=== PATIENT | female | born 1935 | race Caucasian/White ===

== ENCOUNTER 2024-06-03 13:28 | Emergency (ER) | payer MEDICARE, SELFPAY ==
[2024-06-03 13:39] VITALS: BP 141/72; PULSE 76; RESP 20; TEMP 36.6; O2SAT 96
--- NOTE | 2024-06-03 14:37 | ED.GENADULT ---
HPI - General Adult General Chief complaint: Urogenital-Female Stated complaint: Poss UTI Time Seen by Provider: 06/03/24 14:37 Source: patient, RN notes reviewed and old records reviewed Mode of arrival: ambulatory Limitations: no limitations History of Present Illness HPI narrative: 89-year-old female to [facility] from assisted living facility. Patient's niece brought her in stating that staff at patient's facility are reporting increased irritation and confusion. Patient history of dementia. Staff concerned that patient may have a urinary tract infection. Patient denies urinary complaints, bowel complaints, abdominal pain, fever, nausea, vomiting. Patient's niece endorses that patient is a poor historian and may not be able to appropriately discuss actual symptoms. Patient's knees had to assist patient in restroom to give urine sample. Patient confused on exam but is showing no signs of irritation. Respirations even and nonlabored. Patient in no acute distress. Related Data Home Medications Medication Instructions Recorded Confirmed buspirone 7.5 mg tablet mg 06/03/24 divalproex 125 mg tablet,delayed mg PO 06/03/24 release Allergies Allergy/AdvReac Type Severity Reaction Status Date / Time No Known Allergies Allergy Verified 06/03/24 14:45 Review of Systems Review of Systems: All systems reviewed & are unremarkable except as noted in HPI and below Constitutional: Constitutional: Reports no additional constitutional complaints Eyes: Eyes: Reports no additional eye complaints ENT: Reports system reviewed and no additional complaints, except as documented Cardiovascular: Cardiovascular: Reports no additional cardiovascular complaints, Denies chest pain and Denies dyspnea Respiratory: Respiratory: Reports no additional respiratory complaints, Denies cough and Denies dyspnea Musculoskeletal: Musculoskeletal: Reports no additional musculoskeletal complaints Neurologic: Reports as per HPI and Reports confusion ( Baseline) Psychiatric: Psychiatric: Reports no additional psychiatric complaints PMFSH Comments At the time of my signature, I reviewed and agree with the nursing past medical, surgical, social, and family history. There is no relevant family history pertinent to the patient complaint. Exam Const: General: cooperative, healthy appearing, comfortable, no acute distress, alert and well nourished Nutritional Appearance: well nourished Orientation/consciousness: patient oriented x3 Limitations: no limitations HENMT: Head: normal to inspection Ears: external ears normal Face/Nose/Sinus: Normal external nose present, Normal nares present, normal facial exam, No erythema and No edema Face and sinus: normal facial exam, no erythema and no edema Mouth: Yes Normal oral and palatal mucosa present Eyes: General: appearance normal, both eyes and all related structures Neck: Neck: normal visual inspection, full ROM and no meningeal signs Lymphatic: no lymphadenopathy noted and no lymphedema noted Chest: Chest palpation & inspection: normal inspection of the chest Resp: Effort & Inspection: normal respiratory effort and able to speak in complete sentences Auscultation: clear to auscultation bilaterally Cardio: Jugular venous distension: no JVD Rate: regular rate Rhythm: regular rhythm Back/Spine/Pelvis: Cervical Spine: cervical ROM normal Skin: General skin exam: normal color, no rashes or lesions noted and turgor normal Neuro: General: patient oriented x3, gait normal, moves all extremities and no meningeal signs Speech: normal speech Gait exam (Neuro): Normal gait present Extrem: General: normal to inspection, full ROM and capillary refill normal Psych: Appearance: grossly normal and well kempt Course Course Emergency Course: Some parts of this dictation were generated by voice recognition software and may contain typographical and/or grammatical inaccuracies. Level of C
[2024-06-03 14:47] LABS: EDUAAPPEAR Clear; EDUABILI Negative; EDUABLOOD Negative; EDUACOLOR1 Yellow; EDUAGLUCOSE Negative; EDUAKETONE Negative; EDUALEUKO Trace; EDUANITRATE Negative; EDUAPH 5.5; EDUAPROTEIN Negative; EDUAUROBILI 0.2
== END 2024-06-03 14:55 ==
PROVIDERS: Emergency Provider Nurse Practitioner Family
DX: N39.0 Urinary tract infection, site not specified (principal); F03.90 Unspecified dementia, unspecified severity, without behavioral disturbance, psychotic disturbance, mood disturbance, and anxiety
CPT/HCPCS: 81003; 87086; 87088; 99213; G0463

== ENCOUNTER 2024-06-13 14:27 | Emergency (ER) | payer MEDICARE, SELFPAY ==
[2024-06-13 14:40] VITALS: BP 140/63; PULSE 71; RESP 16; TEMP 36.6; O2SAT 97
--- NOTE | 2024-06-13 14:48 | ED.EAR ---
HPI - Ear Problem General Chief complaint: Ear Stated complaint: Ear Problem Time Seen by Provider: 06/13/24 14:48 Source: patient, RN notes reviewed and old records reviewed Mode of arrival: ambulatory Limitations: no limitations History of Present Illness HPI Narrative: 89-year-old female brought to [facility] by her nephew from assisted living for complaint of decreased hearing for the past several weeks, especially on left side. Patient history of dementia, poor historian. Patient's nephew reports that patient has had to have wax removed from bilateral ears in past and is concerned that she has wax build up again. Nephew also states that patient is supposed to be wearing bilateral hearing aids but that she threw them away and has not worn them for over a year. Patient denies ear pain, sore throat, fever, allergies, shortness of breath. Respirations even and nonlabored. Patient in no acute distress. Related Data Home Medications Medication Instructions Recorded Confirmed buspirone 7.5 mg tablet mg 06/03/24 divalproex 125 mg tablet,delayed mg PO 06/03/24 release Allergies Allergy/AdvReac Type Severity Reaction Status Date / Time No Known Allergies Allergy Verified 06/03/24 14:45 Review of Systems Review of Systems: All systems reviewed & are unremarkable except as noted in HPI and below Constitutional: Constitutional: Reports no additional constitutional complaints Eyes: Eyes: Reports no additional eye complaints ENT: Reports system reviewed and no additional complaints, except as documented Cardiovascular: Cardiovascular: Reports no additional cardiovascular complaints, Denies chest pain and Denies dyspnea Respiratory: Respiratory: Reports no additional respiratory complaints, Denies cough and Denies dyspnea Musculoskeletal: Musculoskeletal: Reports no additional musculoskeletal complaints Neurologic: Reports system reviewed and no additional complaints, except as documented Psychiatric: Psychiatric: Reports no additional psychiatric complaints PMFSH Comments At the time of my signature, I reviewed and agree with the nursing past medical, surgical, social, and family history. There is no relevant family history pertinent to the patient complaint. Exam Const: General: cooperative, healthy appearing, comfortable, no acute distress, alert and well nourished Nutritional Appearance: well nourished Orientation/consciousness: patient oriented x3 Limitations: no limitations HENMT: Head: normal to inspection Ears: external ears normal Face/Nose/Sinus: Normal external nose present, Normal nares present, normal facial exam, No erythema and No edema Face and sinus: normal facial exam, no erythema and no edema Mouth: Yes Normal oral and palatal mucosa present Eyes: General: appearance normal, both eyes and all related structures Neck: Neck: normal visual inspection, full ROM and no meningeal signs Lymphatic: no lymphadenopathy noted and no lymphedema noted Chest: Chest palpation & inspection: normal inspection of the chest Resp: Effort & Inspection: normal respiratory effort and able to speak in complete sentences Auscultation: clear to auscultation bilaterally Cardio: Jugular venous distension: no JVD Rate: regular rate Rhythm: regular rhythm Back/Spine/Pelvis: Cervical Spine: cervical ROM normal Skin: General skin exam: normal color, no rashes or lesions noted and turgor normal Neuro: General: patient oriented x3, gait normal, moves all extremities and no meningeal signs Speech: normal speech Gait exam (Neuro): Normal gait present Extrem: General: normal to inspection, full ROM and capillary refill normal Psych: Appearance: grossly normal and well kempt Course Course Emergency Course: Some parts of this dictation were generated by voice recognition software and may contain typographical and/or grammatical inaccuracies. Level of Care: Express Care Visit Vital Signs Vital signs:
== END 2024-06-13 15:44 | disposition home or self-care (01) ==
PROVIDERS: Emergency Provider Nurse Practitioner Family; PCP Family Medicine
DX: H60.92 Unspecified otitis externa, left ear (principal); H61.23 Impacted cerumen, bilateral; F03.90 Unspecified dementia, unspecified severity, without behavioral disturbance, psychotic disturbance, mood disturbance, and anxiety
CPT/HCPCS: 69210; 99213; G0463

== ENCOUNTER 2024-06-28 17:07 | Emergency (ER) | payer MEDICARE, SELFPAY ==
[2024-06-28 17:19] VITALS: BP 151/79; PULSE 74; RESP 20; TEMP 36.4; O2SAT 97
[2024-06-28 17:21] VITALS: BP 151/79; PULSE 74; RESP 20; TEMP 36.4; O2SAT 97
--- NOTE | 2024-06-28 17:43 | ED.GENADULT ---
HPI - General Adult General Chief complaint: Urogenital-Female Stated complaint: bleeding from vagina Source: patient and family Mode of arrival: ambulatory Limitations: no limitations History of Present Illness HPI narrative: Patient presents for evaluation of potential vaginal bleeding. Patient has dementia and lives at [facility]. Patient is here with her nephew's who provides me with most of the history. This evening the patient informed her nephew's that she recently had her period. Neither the patient or family member can not tell me whether the patient has noted blood in the toilet with urination or has any urinary symptoms. Patient denies any abdominal pain, fever chills. Patient indicates she has noted some blood in her underwear but cannot tell me the duration of time in which she has been symptomatic. Related Data Home Medications Medication Instructions Recorded Confirmed buspirone 7.5 mg tablet mg 06/03/24 divalproex 125 mg tablet,delayed mg PO 06/03/24 release Allergies Allergy/AdvReac Type Severity Reaction Status Date / Time No Known Allergies Allergy Verified 06/03/24 14:45 Review of Systems Review of Systems: CONSTITUTIONAL: Denies fever, chills, or sweats. EYES: Denies visual changes, redness, or discharge. ENT: Denies rhinorrhea, congestion, sore throat, or otalgia. CARDIOVASCULAR: Denies chest pain, palpitations, or edema. RESPIRATORY: Denies cough or dyspnea. GASTROINTESTINAL: Denies abdominal pain, nausea, vomiting, or diarrhea. GENITOURINARY: Reports potential vaginal bleeding. Denies dysuria or hematuria. SKIN: Denies rash or itching. MUSCULOSKELETAL: Denies back pain, joint pain, or myalgia. NEUROLOGIC: Denies headache, numbness, dizziness, or weakness. PSYCHIATRIC: Denies anxiety or depression. [facility] Past Medical History Medical History (Updated 06/28/24 @ 18:06 by OLIVIA Candelario, STEPHANIE) Anxiety Dementia Surgical History Surgical History Surgical history unknown Family History Family History Mother Family history unknown Social History Social History (Updated 06/28/24 @ 17:46 by OLIVIA Candelario, ) Living arrangements: assisted living Gender identity (if verbalized by the patient): Female Exam Narrative: GENERAL: Well-appearing, well-nourished, and in no acute distress. HEAD: Normocephalic, atraumatic. EYES: PERRLA and EOMI. ENT: Nares clear, no rhinorrhea or epistaxis. Mucous membranes moist. Oropharynx without tonsillar hypertrophy exudate or other lesions. Bilateral TMs pearly stark nonbulging NECK: Supple. No adenopathy or masses. No carotid bruits or JVD CHEST: Clear to auscultation. No respiratory distress. No wheezes rales or rhonchi HEART: Regular rate and rhythm. No murmur heard. Normal peripheral pulses. ABDOMEN: Soft, nontender, nondistended, normal active bowel sounds. EXTREMITIES: Normal range of motion. No edema. GENITAL: Unable to perform speculum exam due to patient being uncooperative SKIN: Warm, dry, no rash. NEURO: No focal deficits. Oriented to person only PSYCH: Normal mood and affect. Course Course Emergency Course: This is an 89-year-old female who presented for potential vaginal bleeding. I explained to patient and family the need for a speculum exam to determine whether bleeding was coming from the vagina verses urethra. I attempted to perform a speculum exam but patient was extremely uncooperative. She began urinating on the exam table and became physically aggressive with staff. We had to terminate the rest of the exam due to concern that patient may follow up the exam table. Her dementia was definitely of barrier to her being able to receive a speculum exam today. I think she would be best served in an environment where she has side rails to prevent fall
--- NOTE | 2024-06-28 17:57 | PC.NURSE ---
Unable to do vaginal exam. Patient fighting staff and trying to roll off table. Unable to get in stirrups. Voiding all over the table. Would not let provider do exam. She is very hard of hearing.
[2024-06-28 18:07] LABS: EDUAAPPEAR Cloudy; EDUABILI Negative; EDUABLOOD 1+; EDUACOLOR1 Light/Pale; EDUAGLUCOSE Negative; EDUAKETONE Negative; EDUALEUKO 1+; EDUANITRATE Negative; EDUAPROTEIN Negative; EDUASPGRAVITY 1.025; EDUAUROBILI 0.2
== END 2024-06-28 18:05 | disposition short-term general hospital (02) ==
PROVIDERS: Emergency Provider Nurse Practitioner; PCP Family Medicine
DX: N93.9 Abnormal uterine and vaginal bleeding, unspecified (principal); F03.90 Unspecified dementia, unspecified severity, without behavioral disturbance, psychotic disturbance, mood disturbance, and anxiety
CPT/HCPCS: 81003; 99212; G0463

== ENCOUNTER 2024-06-28 18:31 | Emergency (ER) | payer MEDICARE, SELFPAY ==
[2024-06-28 18:47] VITALS: BP 156/66; PULSE 70; RESP 14; TEMP 36.4; O2SAT 97
--- NOTE | 2024-06-28 20:40 | PC.NURSE ---
Pt's family member ambulated to the hotel front desk agent and stated she was going to take pt home and follow up with her doctor in the morning.
== END 2024-06-28 21:00 | disposition left against medical advice (07) ==
PROVIDERS: PCP Family Medicine
DX: N93.9 Abnormal uterine and vaginal bleeding, unspecified (principal)
CPT/HCPCS: 99199

== ENCOUNTER 2024-06-29 10:16 | Emergency (ER) | payer MEDICARE, SELFPAY ==
[2024-06-29] VITALS (13 sets, daily range): BP systolic 132–168; BP diastolic 61–96; PULSE 68–82; RESP 13–23; TEMP 36.5; O2SAT 96–99
--- NOTE | 2024-06-29 11:37 | ED.GIBLEED ---
HPI - GI Bleed General Chief complaint: GI Bleed Stated complaint: RECTAL BLEEDING Time Seen by Provider: 06/29/24 11:29 Source: family and EMS Mode of arrival: EMS Limitations: dementia History of Present Illness HPI Narrative: 89 years old your white female came from assisted living with her nephew who is telling me that the notice possible blood in her depends and stool last night what red dark blood. Patient has dementia unable to tell. Currently patient main complaint is of being here in the hospital patient is not on anticoagulant or anti-platelet medication, patient is not on any home medications Related Data Home Medications Medication Instructions Recorded Confirmed buspirone 7.5 mg tablet mg 06/03/24 divalproex 125 mg tablet,delayed mg PO 06/03/24 release Allergies Allergy/AdvReac Type Severity Reaction Status Date / Time No Known Allergies Allergy Verified 06/29/24 11:32 Review of Systems Review of Systems: All systems reviewed & are unremarkable except as noted in HPI and below PMFSH Past Medical History Medical History Anxiety Dementia Surgical History Surgical History Surgical history unknown Family History Family History Mother Family history unknown Social History Social History Living arrangements: assisted living Gender identity (if verbalized by the patient): Female Exam Narrative: General appearance: Well-developed, well-nourished Skin: Normal color Head: Normocephalic, nontraumatic Eyes: Clear conjunctiva ENT: Oropharynx normal, ears normal, nose normal Neck: Supple, nontender Chest and respiratory: Airway patent, no respiratory distress, no accessory muscle use Heart: Regular rate/rhythm Abdomen: Soft, nontender, no organomegaly, quiet bowel sounds rectal exam showed no mass, no hemorrhoids, no tenderness, guaiac negative Vascular: Normal peripheral pulses, normal capillary refill. Musculoskeletal: Normal range of motion, nontender back Neurologic: Alert and oriented to her name only Pelvic exam showed normal vagina, normal vaginal pouch, no blood or any lesion. Course Consultations Consultation #1: Dr. Plata Outpatient follow-up Date: 06/29/24 Time: 14:01 Vital Signs Vital signs: Vital Signs Temperature 36.5 C 06/29/24 10:17 Pulse Rate 71 06/29/24 10:17 Respiratory Rate 20 06/29/24 10:17 Blood Pressure 161/91 H 06/29/24 10:17 Pulse Oximetry 98 06/29/24 10:17 Oxygen Delivery Room Air 06/29/24 10:17 Temperature 36.5 C 06/29/24 10:17 Pulse Rate 74 06/29/24 13:02 Respiratory Rate 19 06/29/24 13:02 Blood Pressure 132/61 06/29/24 13:02 Pulse Oximetry 97 06/29/24 13:02 Oxygen Delivery Room Air 06/29/24 11:19 MDM - GI Bleed MDM Narrative Medical decision making narrative: Patient came to the ED for possible blood in the stool and depend. Vital signs on arrival showed blood pressure of 161/91 Physical examination showed no significant abnormalities except dementia, rectal exam and pelvic exam showed no bleeding. Differential diagnosis include GI bleed, vaginal bleed, urinary tract infection or hematuria, anemia. Blood workup today showed insignificant abnormalities. Rectal exam, pelvic exam and urinalysis showed no blood, patient hemoglobin is 12.7, Patient is hemodynamically stable, asymptomatic. The plan to discharge patient to residential and follow-up with Dr. Plata as outpatient. Discussed with Dr. Vera
[2024-06-29] MEDS: SODIUM CHLORIDE 0.9% IV 1,000 ML 100 ML IV CONT (12:02)
[2024-06-29] MEDS: PANTOPRAZOLE SODIUM IV 40 MG VIAL IV PUSH (12:03)
[2024-06-29 12:19] LABS: Basophils Absolute Auto 0.1 K/mm3 (0.0-0.1); Basophils Percent Auto 0.7 % (0.2-1.2); Eosinophils Absolute Auto 0.3 K/mm3 (0-0.3); Eosinophils Percent Auto 3.3 % (0-4.4); Hematocrit 41.4 % (37.0-47.0); Hemoglobin 12.7 g/dL (12.0-15.0); Immature Granulocyte Absolute 0.02 K/mm3 (0.00-0.031); Immature Granulocyte Percent A 0.3 % (0-0.5); Lymphocytes Absolute Auto 1.46 K/mm3 (0.9-3.2); Lymphocytes Percent Auto 19.2 % (18.3-44.2); Mean Corpuscular HGB Conc 30.7 g/dl (32-36); Mean Corpuscular Hemoglobin 27.8 pg (26-34); Mean Corpuscular Volume 90.6 fl (80-100); Mean Platelet Volume 10.6 fl (7.4-10.4); Monocytes Absolute Auto 0.8 K/mm3 (0.1-0.6); Monocytes Percent Auto 10.4 % (2.6-8.5); Neutrophils Absolute Auto 5.1 K/mm3 (1.3-6.7); Neutrophils Percent Auto 66.1 % (45.5-73.1); Platelet Count Result 257 k/mm3 (150-375); Red Blood Count 4.57 M/mm3 (4.2-5.4); Red Cell Distribution Width 14.5 % (11.5-14.5); White Blood Count 7.6 K/mm3 (4.5-10.0)
[2024-06-29 12:30] LABS: INR 0.9; Prothrombin Time 13.1 Seconds (11.1-14.7)
[2024-06-29 12:31] LABS: Partial Thromboplastin Time 26.7 Seconds (22.3-36.8)
[2024-06-29 12:37] LABS: Lactic Acid Reflex 0.6 mmol/L (0.7-2.0)
[2024-06-29 12:39] LABS: Alanine Aminotransferase 15 U/L (6-35); Albumin Level 4.2 g/dL (3.5-5.1); Alkaline Phosphatase 59 U/L (38-126); Anion Gap 8 mmol/L (4-12); Aspartate Amino Transferase 25 U/L (14-36); Bilirubin,Total 0.4 mg/dL (0.2-1.3); Blood Urea Nitrogen 16 mg/dL (7-17); Carbon Dioxide 30 mmol/L (22-30); Chloride 102 mmol/L (98-107); Estimated CRCL calculation 35 ml/min; Estimated Glomerular Filt Rate 59; Glucose 93 mg/dL (65-110); Lipase 90 U/L (23-300); Magnesium 2.2 mg/dL (1.6-2.3); Potassium 4.1 mmol/L (3.4-5.0); Sodium 140 mmol/L (137-145)
[2024-06-29] MEDS: LORazepam INJ (*CRX) 2 MG/ML VIAL 1 MG IV PUSH (12:48)
== END 2024-06-29 14:46 ==
PROVIDERS: Emergency Provider Emergency Medicine; PCP Family Medicine
DX: K62.5 Hemorrhage of anus and rectum (principal); F41.9 Anxiety disorder, unspecified; F03.90 Unspecified dementia, unspecified severity, without behavioral disturbance, psychotic disturbance, mood disturbance, and anxiety
CPT/HCPCS: 36415; 80053; 83605; 83690; 83735; 85025; 85610; 85730; 86850; 86900; 86901; 96361; 96374; 96375; 99284; J2060; J2470; J7030

== ENCOUNTER 2024-12-16 14:01 | Emergency (ER) | payer MEDICARE, SELFPAY ==
--- NOTE | ~2024-12-16 | XR_ITS ---
EXAMINATION: XR chest 1V DATE: 12/16/2024 16:25 INDICATION: Fluid overload. Dementia. TECHNIQUE: A single frontal view of the chest was obtained. COMPARISON: None. FINDINGS: There are airspace opacities at left lung base. No pleural effusion or pneumothorax. The he art size is normal. IMPRESSION: 1. Airspace opacities at left lung base, consistent with atelectasis versus pneumonia. Reviewed, dictated and finalized at location A. ULAR TOWER CLIMBER IMPRESSION: 1. Airspace opacities at left lung base, consistent with atelectasis versus pne umonia.
--- OUTSIDE RECORDS SUMMARY | 2024-12-16 14:06 | XMS_ITS | Clinical Summary ---
Author Organization [facility] Address [address] [place] [address] Phone Care Team Providers Care Vice President Compliance Name Role Phone Amarjit Cerna MD Primary Care Provider [phone] Allergies No known active allergies Medications ketorolac (TORADOL) 10 MG Tablet Take 1 Tablet by mouth every 6 hours as needed for Moderate or more severe pain. 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, psychotic disturbance, mood disturbance, or anxiety 02/17/2022 Calculus of gallbladder with out cholecystitis without obstruction 05/17/2018 Mixed hyperlipidemia 11/16/2017 Hemorrhoids 03/15/2014 Diverticulosis of colon 03/15/2014 History of colonic polyps 02/19/2009 Hypertension, essential Arthritis Resolved Problems Problem Noted Date Diagnosed Date Resolved Date S/P total knee arthroplasty, 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/21/2019 12/27/2020 Osteoarthritis of left knee 09/21/2019 12/27/2020 Cholecystitis 03/02/2018 03/18/2018 Chest pain in adult 02/27/2018 03/18/20 18 Impacted cerumen 12/30/2012 12/18/2017 Immunizations Immunization Administration Dates Next Due Covid-19, Mrna, Lnp-s, Pf, 3 0 Mcg/0.3 Ml Dose ([place]) 04/10/2022,02/06/2021,01/09/2021 Influenza Vaccine 08/22/2019,08/13/2012 Influenza Vaccine greater than 3 yrs 08/2020,09/07/2019,08/16/2018,2013,08/04/2013 Influenza, High-dose, Quadrivalent 09/03/2022 Influenza, Injectable, Quadrivalent 08/19/2016 Influenza, Quadrivalent, Adjuvanted 09/14/2021 Influenza, Seasonal, Injecta ble, Undefined 08/14/2014,08/21/2013,08/04/2013,2011 Influenza, high-dose, trivalent, PF 09/07/2019,1 ,08/25/2017 Pneumococcal Vaccine - 13 Valent 12/18/2017,08/17 Pneumococcal Vaccine Adult - 23 Valent 12/23/2018 Family History Medical History Relation Name Comments Alcohol Abuse Father No Known Problems Mother Breast Cancer Neg Hx Relation Name Status Comments Father Mother Social History Tobacco Use Types Packs/Day Years Used Date Smoking Tobacco: Former Cigarettes 1 10 0 02/27/1975 - 02/27/1985 Smokeless Tobacco: Never Tobacco Cessation:Counseling Given: Not Answered Alcohol Use Standard Drinks/Week Comments Yes 1 (1 standard drink = 0.6 oz pur e alcohol) rare PHQ-2 Answer Date Recorded Total Score - Questions 1-9 0 05/2022 Sexually Active Control Partners Comments Never Comments No Sex and Gender Information Value Date Recorded Sex Assigned at Not on file 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[employer] Gender Identity Not on file Sexual Orientation Not on file Last Filed Vital Signs Vital Sign Reading Time Taken Comments Blood Pressure 143/94 08/27/2024 10:30 AM CDT Pulse 70 08/27/2024 10:30 AM CDT Temperature 36.8 ??C (98.3 ??F) 08/27/2024 9:12 AM CD T Respiratory Rate 16 08/27/2024 10:3 0 AM CDT Oxygen Saturation 96% 08/27/2024 10: 30 AM CDT Inhaled Oxygen Concentration - - Weight 81.6 kg (179 lb 14.3 oz) 08/27/2024 9:12 AM CDT Height 157.5 cm (5' 2 ) 08/27/2024 9:12 AM CDT Body Mass Index 32.9 08/27/2024 9:12 AM CDT Plan of Treatment Health Maintenance Due Date Last Done Comments DEXA Bone Density 1935 TdaP Immunization 1935 Zoster Immunization (1 of 2) 1986 Respiratory Syncytial Virus (RSV) Immunization (Adult) (1 - 1-dose 75+ series) 2011 Influenza Immunization (#1) 07/17/202408/16, 09/14/2021, 08/25/2020, Additional history exists SARS-COV-2 Immunization ( season) 2024 04/10/2022, 04/10/2022, 09/14/2021, Additional history exists Pneumococcal Immunization (50+ years) Completed 12/23/2018, 12/18/2017, 09/06/2015 Pneumococcal Immunization Combined Discontinued 12/23/2018, 12/18/2017, 09/06/2015 Hepatitis C Virus (HCV) Screening Completed 02/17/2022 Hepatitis B Immunization Aged Out No longer eligible based on patient's age to complete this topic Meningococcal Immunization (ACWY) Aged Out No longer eligible based on patient's age to complete this topic Rotavirus Immunization Aged Out No lo nger eligible based on patient's age to complete this topic Medical Devices Implanted Type Area Manager Of Construction Device Identifier Shelf Expiration Date Model / Serial / Lot Insert Tib 5 5mm Knee Crurtn Rotate Platform Attune - [id number] Implanted:Qty: 1 on 09/19/2019 by Laz Storey MD at [facility] IMPLANT Left: Knee [employer] 09/15/2023 [id number] Attune Tibial Base Size 5 Cementless Implanted:Qty: 1 on 09/19/2019 by Laz Storey MD at [facility] Left: Knee [employer] 05/15/2028 5 / [id number] Attune Femoral Porocoat Implanted:Qty: 1 on 09/19/2019 by Laz Storey MD at [facility] Left: Knee [employer] 04/15/2028 [id number] 5 / [id number] Procedures Procedure Name Priority Date/Time Associated Diagnosis Comments HEPATITIS C ANTIBODY Routine 02/17/2022 9:06 AM CDT Screening for viral disease from Last 3 Months or Most Recently Relevant to Health Maintenance Results * HEPATITIS C ANTIBODY (02/17/2022 9:06 AM CDT) hepatitis C antibody 0.11 <1 S/CO [facility] [id number] 02/17/2022 11:50 PM CDT [facility] Comment: Signal/Cutoff ratio ??< 0.79 is Nondetected Signal/Cutoff ratio 0.80-0.99 is Grayzone Signal/Cutoff ratio > 0.99 is Detected Supplemental assays are recommended if signal/cutoff ratio is >/=1.00. ??Signal/cutoff ratio result >/= 5.00 is 97% predictive of positivity for recombinant immunoblot assay (RIBA) and will be reported to the [place] Department of Public Health as required. 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 PRE-ARREST: Use entire range of life support measures to stabilize the patient. Care Teams Vice President Compliance Relationship Specialty Start Date End Date Amarjit Cerna MD [address] [place] [address] PCP - General Internal Medicine 11/14/17
[2024-12-16 14:40] VITALS: BP 148/60; PULSE 96; RESP 18; TEMP 36.6; O2SAT 96
--- NOTE | 2024-12-16 15:45 | ED_ITS ---
HPI - Extremity Problem General Chief complaint: Extremity Problem,Nontraumatic <Nadine Alonzo PA-C - Last Filed: 12/17/24 18:01> Stated complaint: congestion <Nadine Alonzo PA-C - Last Filed: 12/17/24 18:01> Time Seen by Provider: 12/16/24 15:45 <Nadine Alonzo PA-C - Last Filed: 12/17/24 18:01> Focused HPI: This is a 89 year old female that presents to the ER for possible heart failure. She has had worsening lower extremity edema. She also has a cough. No known history of heart failure. She was sent from her facility as they were unable to do these outpatient today. GENERAL: Elderly, well-nourished, and in no acute distress. HEAD: Normocephalic, atraumatic. CHEST: Clear to auscultation. ?No respiratory distress. HEART: Regular rate and rhythm.? NEURO: ?Alert and oriented x3. Patient screened in triage and initial orders placed.? ?Additional care and disposition to be based upon?diagnostic testing and treatment. <Nadine Alonzo PA-C - Last Filed: 12/17/24 18:01> History of Present Illness HPI Narrative: Agree with HPI. Worsening edema over last month. Decreased ambulation over last month. No history of heart failure. <Jaquan Simpson MD - Last Filed: 12/16/24 21:31> Related Data Home medications: Home Medications ?Medication ?Instructions ?Recorded ?Confirmed ?Last Taken ?Type buspirone 7.5 mg tablet mg 06/03/24 Unknown History divalproex 125 mg tablet,delayed mg PO 06/03/24 Unknown History release <Nadine Alonzo PA-C - Last Filed: 12/17/24 18:01> Allergies/Adverse reactions: Allergies Allergy/AdvReac Type Severity Reaction Status Date / Time No Known Allergies Allergy Verified 06/29/24 11:32 <Nadine Alonzo PA-C - Last Filed: 12/17/24 18:01> Review of Systems 2 Review of Systems: ROS unobtainable: Yes unobtainable due to mental status (Dementia) <Jaquan Simpson MD - Last Filed: 12/16/24 21:31> [facility]LY [facility] Past Medical History Medical History: Medical History Anxiety Dementia <Nadine Alonzo PA-C - Last Filed: 12/17/24 18:01> Surgical History Surgical History: Surgical History Surgical history unknown <Nadine Alonzo PA-C - Last Filed: 12/17/24 18:01> Family History Family History: Family History Mother Family history unknown <Nadine Alonzo PA-C - Last Filed: 12/17/24 18:01> Social History Social History: Social History Living arrangements: assisted living Gender identity (if verbalized by the patient): Female <Nadine Alonzo PA-C - Last Filed: 12/17/24 18:01> Exam 2 Narrative: GENERAL: Well-appearing, well-nourished, and in no acute distress. HEAD: Normocephalic, atraumatic. ENT: Mucous membranes moist. CHEST: Clear to auscultation. No respiratory distress. HEART: Regular rate and rhythm. Normal peripheral pulses. ABDOMEN: Soft, nontender, nondistended. EXTREMITIES: Normal range of motion. 4+ edema. SKIN: Warm, dry, no rash. NEURO: Alert and oriented x1. PSYCH: Normal mood and affect. <Jaquan Simpson MD - Last Filed: 12/16/24 21:31> Course Course Emergency Course: Edema felt to be from stasis. She does have mild UTI. Will be discharged with oral antibiotic. Family informed of treatment plan. <Jaquan Simpson MD - Last Filed: 12/16/24 21:31> Vital Signs Vital signs: Vital Signs Temperature 97.9 F 12/16/24 14:40 Pulse Rate 96 12/16/24 14:40 Respiratory Rate 18 12/16/24 14:40 Blood Pressure 148/60 H 12/16/24 14:40 Pulse Oximetry 96 12/16/24 14:40 Oxygen Delivery Room Air 12/16/24 14:40 Temperature 97.1 F L 12/16/24 21:47 Pulse Rate 75 12/16/24 21:47 Respiratory Rate 17 12/16/24 21:47 Blood Pressure 111/85 12/16/24 21:47 Pulse Oximetry 96 12/16/24 21:47 Oxygen Delivery Room Air 12/16/24 14:40 <Nadine Alonzo PA-C - Last Filed: 12/17/24 18:01> Vital Signs Temperature 97.9 F 12/16/24 14:40 Pulse Rate 96 12/16/24 14:40 Respiratory Rate 18 12/16/24 14:40 Blood Pressure 148/60 H 12/16/24 14:40 Pulse Oximetry 96 12/16/24 14:40 Oxygen Delivery Room Air 12/16/24 14:40 Temperature 97.1 F L 12/16/24 21:47 Pulse Rate 75 12/16/24 21:47 Respiratory Rate 17 12/16/24 21:47 Blood Pressure 111/85 12/16/24 21:47 Pulse Oximetry 96 12/16/24 21:47 Oxygen Delivery Room Air 12/16/24 14:40 <Jaquan Simpson MD - Last Filed: 12/16/24 21:31> MDM - Extremity (Nontraumatic) Lab Data Result diagrams: 12/16/24 18:21 12/16/24 18:21 <Nadine Alonzo PA-C - Last Filed: 12/17/24 18:01> Labs: Lab Results 12/16/24 12/16/24 12/16/24 Range/Units 18:12 18:21 18:52 WBC 9.6 (4.5-10.0) K/mm3 RBC 4.56 (4.2-5.4) M/mm3 Hgb 13.4 (12.0-15.0) g/dL Hct 42.7 (37.0-47.0) % MCV 93.6 (80-100) fl MCH 29.4 (26-34) pg MCHC 31.4 L (32-36) g/dl RDW 13.3 (11.5-14.5) % Plt Count 167 (150-375) k/mm3 MPV 9.8 (7.4-10.4) fl Immature Gran % (Auto) 0.4 (0-0.5) % Neut % (Auto) 65.6 (45.5-73.1) % Lymph % (Auto) 19.4 (18.3-44.2) % Gonzales % (Auto) 13.4 H (2.6-8.5) % Eos % (Auto) 0.8 (0-4.4) % Baso % (Auto) 0.4 (0.2-1.2) % Lymph # (Auto) 1.85 (0.9-3.2) K/mm3 Gonzales # (Auto) 1.3 H (0.1-0.6) K/mm3 Eos # (Auto) 0.1 (0-0.3) K/mm3 Baso # (Auto) 0.0 (0.0-0.1) K/mm3 Abs Immat Gran (auto) 0.04 H (0.00-0.031) K/mm3 Absolute Neuts (auto) 6.3 (1.3-6.7) K/mm3 Absolute Nucleated RBC 0.000 (0.0-0.012) K/mm3 Nucleated RBC % 0.0 (0.0-0.2) % Sodium 141 (137-145) mmol/L Potassium 3.9 (3.4-5.0) mmol/L Chloride 103 (98-107) mmol/L Carbon Dioxide 26 (22-30) mmol/L Anion Gap 12 (4-12) mmol/L BUN 15 (7-17) mg/dL Creatinine 0.60 L (0.7-1.0) mg/dL Estim Creat Clear Calc Not Reportable Estimated GFR > 60 (59 - ) Glucose 97 (65-110) mg/dL Calcium 8.9 (8.4-10.2) mg/dL Total Bilirubin 0.5 (0.2-1.3) mg/dL AST 24 (14-36) U/L ALT 14 (6-35) U/L Alkaline Phosphatase 66 (38-126) U/L NT-Pro-B Natriuret Pep 632 H (19.9-100) pg/mL Total Protein 7.0 (6.3-8.2) g/dL Albumin 3.9 (3.5-5.1) g/dL Urine Color Yellow (Yellow) Urine Appearance Cloudy H (Clear) Urine pH 6.0 (5.0-9.0) Ur Specific Jackson 1.010 (1.001-1.035) Urine Protein Negative (Negative) mg/dL Urine Glucose (UA) Negative (Negative) mg/dL Urine Ketones Negative (Negative) mg/dL Ur Blood (Man) Negative (Negative) Urine Nitrate Positive H (Negative) Urine Bilirubin Negative (Negative) Urine Urobilinogen 1.0 (<2.0) mg/dL Leukocyte Esterase Rfl 3+ H (Negative) MEGHANA/UL Urine RBC 0-2 (0-2) /hpf Urine WBC >100 H (0-3) /hpf Ur Squamous Epith Cells None seen (Few) /hpf Urine Bacteria 4+ H /hpf Urine Casts 0-2 Influenza A (RT-PCR) Negative (Negative) Influenza B (RT-PCR) Negative (Negative) RSV (RT-PCR) Negative (Negative) SARS-CoV-2 RNA (RT-PCR) Negative (Negative) <Nadine Alonzo PA-C - Last Filed: 12/17/24 18:01> Lab Results 12/16/24 12/16/24 12/16/24 Range/Units 18:12 18:21 18:52 WBC 9.6 (4.5-10.0) K/mm3 RBC 4.56 (4.2-5.4) M/mm3 Hgb 13.4 (12.0-15.0) g/dL Hct 42.7 (37.0-47.0) % MCV 93.6 (80-100) fl MCH 29.4 (26-34) pg MCHC 31.4 L (32-36) g/dl RDW 13.3 (11.5-14.5) % Plt Count 167 (150-375) k/mm3 MPV 9.8 (7.4-10.4) fl Immature Gran % (Auto) 0.4 (0-0.5) % Neut % (Auto) 65.6 (45.5-73.1) % Lymph % (Auto) 19.4 (18.3-44.2) % Gonzales % (Auto) 13.4 H (2.6-8.5) % Eos % (Auto) 0.8 (0-4.4) % Baso % (Auto) 0.4 (0.2-1.2) % Lymph # (Auto) 1.85 (0.9-3.2) K/mm3 Gonzales # (Auto) 1.3 H (0.1-0.6) K/mm3 Eos # (Auto) 0.1 (0-0.3) K/mm3 Baso # (Auto) 0.0 (0.0-0.1) K/mm3 Abs Immat Gran (auto) 0.04 H (0.00-0.031) K/mm3 Absolute Neuts (auto) 6.3 (1.3-6.7) K/mm3 Absolute Nucleated RBC 0.000 (0.0-0.012) K/mm3 Nucleated RBC % 0.0 (0.0-0.2) % Sodium 141 (137-145) mmol/L Potassium 3.9 (3.4-5.0) mmol/L Chloride 103 (98-107) mmol/L Carbon Dioxide 26 (22-30) mmol/L Anion Gap 12 (4-12) mmol/L BUN 15 (7-17) mg/dL Creatinine 0.60 L (0.7-1.0) mg/dL Estim Creat Clear Calc Not Reportable Estimated GFR > 60 (59 - ) Glucose 97 (65-110) mg/dL Calcium 8.9 (8.4-10.2) mg/dL Total Bilirubin 0.5 (0.2-1.3) mg/dL AST 24 (14-36) U/L ALT 14 (6-35) U/L Alkaline Phosphatase 66 (38-126) U/L NT-Pro-B Natriuret Pep 632 H (19.9-100) pg/mL Total Protein 7.0 (6.3-8.2) g/dL Albumin 3.9 (3.5-5.1) g/dL Urine Color Yellow (Yellow) Urine Appearance Cloudy H (Clear) Urine pH 6.0 (5.0-9.0) Ur Specific Jackson 1.010 (1.001-1.035) Urine Protein Negative (Negative) mg/dL Urine Glucose (UA) Negative (Negative) mg/dL Urine Ketones Negative (Negative) mg/dL Ur Blood (Man) Negative (Negative) Urine Nitrate Positive H (Negative) Urine Bilirubin Negative (Negative) Urine Urobilinogen 1.0 (<2.0) mg/dL Leukocyte Esterase Rfl 3+ H (Negative) MEGHANA/UL Urine RBC 0-2 (0-2) /hpf Urine WBC >100 H (0-3) /hpf Ur Squamous Epith Cells None seen (Few) /hpf Urine Bacteria 4+ H /hpf Urine Casts 0-2 Influenza A (RT-PCR) Negative (Negative) Influenza B (RT-PCR) Negative (Negative) RSV (RT-PCR) Negative (Negative) SARS-CoV-2 RNA (RT-PCR) Negative (Negative) <Jaquan Simpson MD - Last Filed: 12/16/24 21:31> Imaging Data Radiologist's impression: ITS Impressions Chest X-Ray 12/16/24 16:35 IMPRESSION: 1. Airspace opacities at left lung base, consistent with atelectasis versus pneumonia. <Jaquan Simpson MD - Last Filed: 12/16/24 21:31> Critical Care Time Critical Care Time Critical Care Time: No <Nadine Alonzo PA-C - Last Filed: 12/17/24 18:01> Discharge Plan Discharge Clinical Impression: Acute UTI Edema Qualifiers: Edema type: unspecified Qualified Code(s): R60.9 - Edema, unspecified <Nadine Alonzo PA-C - Last Filed: 12/17/24 18:01> Patient Disposition: Home, Self-Care <Nadine Alonzo PA-C - Last Filed: 12/17/24 18:01> Condition: Stable <Nadine Alonzo PA-C - Last Filed: 12/17/24 18:01> Instructions: Urinary Tract Infection in Women (ED), Edema (ED) <Nadine Alonzo PA-C - Last Filed: 12/17/24 18:01> Additional Instructions: You should return to the emergency department if you develop severe nausea and vomiting and are unable to keep liquids down, if you develop severe back/flank or stomach pain, or if your symptoms are not clearly improving at home. Apply compression stockings are leg wraps to help with your edema. You may also elevate your legs. Talked to her doctor about starting a diuretic medication. <Nadine Alonzo PA-C - Last Filed: 12/17/24 18:01> Patient Language: Sinhala <Nadine Alonzo PA-C - Last Filed: 12/17/24 18:01> Prescriptions: New cefuroxime axetil 500 mg tablet 500 mg PO BID Qty: 14 0RF No Action divalproex 125 mg tablet,delayed release (DR/EC) PO buspirone 7.5 mg tablet <Nadine Alonzo PA-C - Last Filed: 12/17/24 18:01> Follow-up/Referrals: Kian Nichole MD [Primary Care Provider] - 1 Week <Nadine Alonzo PA-C - Last Filed: 12/17/24 18:01>
--- NOTE | 2024-12-16 15:46 | ECG_ITS ---
Test Date: 2024-12-16 16:05:06 Measurements Intervals [place] Rate: 71 P: 77 WV: 174 QRS: 7 QRSD: 90 T: 43 QT: 385 QTc: 420 Interpretive Statements SINUS RHYTHM INCOMPLETE RIGHT BUNDLE BRANCH BLOCK BORDERLINE ST-T WAVE ABNORMALITY- INFERIOR LEADS BASELINE ARTIFACT- I, II, III, AVR, AVL ,AVF, ,V1-V6 BORDERLINE ECG No previous ECG available for comparison Electronically Signed On 12-17-2024 10:16:46 PORTFOLIO STRATEGIST by Dimas Nava D.O.
--- OUTSIDE RECORDS SUMMARY | 2024-12-16 16:19 | XMS_ITS | Clinical Summary ---
Author Organization [facility] Address [address] [place] [address] Phone Care Team Providers Care Manager Lighting Name Role Phone Amarjit Cerna MD Primary Care Provider [phone] Allergies No known active allergies Medications ketorolac (TORADOL) 10 MG Tablet Take 1 Tablet by mouth every 6 hours as needed for Moderate or more severe pain. 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 Gender Identity Not on file Sexual Orientation [...] this topic Medical Devices Implanted Type Area Carton Repairer Device Identifier Shelf Expiration Date Model / Serial / Lot Insert Tib 5 5mm Knee Crurtn Rotate Platform Attune - [id number] Implanted:Qty: 1 on 09/19/2019 by Laz Storey MD at [facility] IMPLANT Left: Knee [employer] 09/15/2023 [id number] Attune Tibial Base Size 5 Cementless Implanted:Qty: 1 on 09/19/2019 by Laz Storey MD at [facility] Left: Knee [employer] 05/15/2028 5 / [id number] Attune Femoral Porocoat Implanted:Qty: 1 on 09/19/2019 by Laz Storey MD at [facility] Left: Knee [employer] 04/15/2028 [id number] / [id number] Procedures Procedure Name Priority Date/Time Associated Diagnosis Comments HEPATITIS C ANTIBODY Routine 02/17/2022 9:06 AM CDT Screening for viral disease from Last 3 Months or Most Recently Relevant to Health Maintenance Results * HEPATITIS C ANTIBODY (02/17/2022 9:06 AM CDT) hepatitis C antibody 0.11 <1 S/[facility] ARCH [id number] B 02/17/2022 11:50 PM CDT [facility] Comment: Signal/Cutoff ratio ??< 0.79 is Nondetected Signal/Cutoff ratio 0.80-0.99 is Grayzone Signal/Cutoff ratio > 0.99 is Detected Supplemental assays are recommended if signal/cutoff ratio is >/=1.00. ??Signal/cutoff ratio result >/= 5.00 is 97% predictive of positivity for recombinant immunoblot assay (RIBA) and will be reported to the [place] Department of Public Health as required. Blood Venipuncture / Unknown 02/17/2022 9:06 AM CDT 02/17/2022 9:06 AM CDT us Castro Liz PAC CHEMISTRY ORDERABLES Fin al Result 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 PRE-ARREST: Use entire range of life support measures to stabilize the patient. Care Teams Manager Lighting Relationship Specialty Start Date End Date Amarjit Cerna MD [address] [place] [address] PCP - General Internal Medicine 11/14/17
[2024-12-16 18:30] LABS: Basophils Percent Auto 0.4 % (0.2-1.2); Eosinophils Absolute Auto 0.1 K/mm3 (0-0.3); Eosinophils Percent Auto 0.8 % (0-4.4); Hematocrit 42.7 % (37.0-47.0); Hemoglobin 13.4 g/dL (12.0-15.0); Immature Granulocyte Absolute 0.04 K/mm3 (0.00-0.031); Immature Granulocyte Percent A 0.4 % (0-0.5); Lymphocytes Absolute Auto 1.85 K/mm3 (0.9-3.2); Lymphocytes Percent Auto 19.4 % (18.3-44.2); Mean Corpuscular HGB Conc 31.4 g/dl (32-36); Mean Corpuscular Hemoglobin 29.4 pg (26-34); Mean Corpuscular Volume 93.6 fl (80-100); Mean Platelet Volume 9.8 fl (7.4-10.4); Monocytes Absolute Auto 1.3 K/mm3 (0.1-0.6); Monocytes Percent Auto 13.4 % (2.6-8.5); Neutrophils Absolute Auto 6.3 K/mm3 (1.3-6.7); Neutrophils Percent Auto 65.6 % (45.5-73.1); Platelet Count Result 167 k/mm3 (150-375); Red Blood Count 4.56 M/mm3 (4.2-5.4); Red Cell Distribution Width 13.3 % (11.5-14.5); White Blood Count 9.6 K/mm3 (4.5-10.0)
[2024-12-16 18:38] VITALS: PULSE 96; RESP 34; O2SAT 79
[2024-12-16 18:41] LABS: Alanine Aminotransferase 14 U/L (6-35); Albumin Level 3.9 g/dL (3.5-5.1); Alkaline Phosphatase 66 U/L (38-126); Anion Gap 12 mmol/L (4-12); Aspartate Amino Transferase 24 U/L (14-36); Bilirubin,Total 0.5 mg/dL (0.2-1.3); Blood Urea Nitrogen 15 mg/dL (7-17); Calcium 8.9 mg/dL (8.4-10.2); Carbon Dioxide 26 mmol/L (22-30); Chloride 103 mmol/L (98-107); Estimated Glomerular Filt Rate > 60; Glucose 97 mg/dL (65-110); Potassium 3.9 mmol/L (3.4-5.0); Sodium 141 mmol/L (137-145)
[2024-12-16 18:45] VITALS: PULSE 80; RESP 23
[2024-12-16 18:50] LABS: NT Pro B Type Natriuretic Pept 632 pg/mL (19.9-100)
[2024-12-16 18:53] VITALS: BP 147/88; PULSE 74; RESP 24; O2SAT 99
[2024-12-16 19:02] LABS: Add Urine Microscopic? YES; Appearance Urine Cloudy (Clear); Bacteria Urine 4+ /hpf; Bilirubin Urine Negative (Negative); Blood Urine Negative (Negative); Color Urine Yellow (Yellow); Glucose Urine UA Negative (Negative); Ketones Urine Negative (Negative); Leukocyte Esterase Ur 3+ LEU/UL (Negative); Nitrate Urine Positive (Negative); Non Pathogenic Casts 0-2; Protein Urine Negative (Negative); RBC Urine 0-2 /hpf (0-2); Squamous Epithelial Cell Urine None Seen /hpf (Few); WBC Urine >100 /hpf (0-3)
[2024-12-16 19:07] LABS: Influenza A QL RT-PCR Negative (Negative); Influenza B QL RT-PCR Negative (Negative); RSV RNA, RT-PCR Negative (Negative); SARS-CoV-2 RNA PCR Negative (Negative)
--- NOTE | 2024-12-16 19:11 | PC.NURSE ---
Report received from RAJAT Kenny. Assumed care of patient at this time.
[2024-12-16 20:07] VITALS: BP 113/68; PULSE 75; RESP 17; O2SAT 97
[2024-12-16 21:47] VITALS: BP 111/85; PULSE 75; RESP 17; TEMP 36.2; O2SAT 96
--- NOTE | 2024-12-16 21:49 | PC.NURSE ---
Attempted to call report to [place], no answer and not able to leave message. Will try again.
--- NOTE | 2024-12-16 21:54 | PC.NURSE ---
Attempted to call report again, no answer and unable to leave a message. Patient left ED at this time with POA.
== END 2024-12-16 21:55 ==
PROVIDERS: Physician Assistant; Emergency Provider Emergency Medicine; PCP Family Medicine
DX: R60.0 Localized edema (principal); N39.0 Urinary tract infection, site not specified; F03.90 Unspecified dementia, unspecified severity, without behavioral disturbance, psychotic disturbance, mood disturbance, and anxiety; F41.9 Anxiety disorder, unspecified; Z20.822 Contact with and (suspected) exposure to COVID-19; R91.8 Other nonspecific abnormal finding of lung field; I45.10 Unspecified right bundle-branch block; R94.31 Abnormal electrocardiogram [ECG] [EKG]
CPT/HCPCS: 36415; 71045; 80053; 81001; 83880; 85025; 87077; 87086; 87186; 87637; 93005; 99284